=== PATIENT | female | born 1960 | race Caucasian/White ===

== ENCOUNTER 2024-08-22 08:16 | Day surgery (SDC) | payer MEDICARE, BC ==
[~2024-08-22] VITALS: Ht 167.6 cm; Wt 50.0 kg
[2024-08-22 08:41] VITALS: BP 131/65; PULSE 69; RESP 18; TEMP 97.5
[2024-08-22] MEDS ORDERED: simethicone 40mg/0.6ml oral drops 30ml ONE (10:09)
[2024-08-22] MEDS ORDERED: midazolam 1 mg/ML 2ml injection ONE (10:10)
[2024-08-22] MEDS ORDERED: fentaNYL/PF 50MCG/1 ML 2ML syringe ONE (10:10)
[2024-08-22] MEDS ORDERED: propofol inj 20 ML IV ONE (10:10)
[2024-08-22 10:42] VITALS: BP 103/55; PULSE 56; RESP 14; O2SAT 99
[2024-08-22 10:52] VITALS: BP 102/61; PULSE 62; RESP 15; O2SAT 100
[2024-08-22 11:02] VITALS: BP 111/58; PULSE 50; RESP 14; O2SAT 99
[2024-08-22 11:12] VITALS: BP 110/56; PULSE 65; RESP 16; O2SAT 98
== END 2024-08-22 11:20 | disposition home or self-care (01) ==
LOC: GI LAB 08:16
PROVIDERS: ATTEND Internal Medicine Gastroenterology
DX: K92.1 Melena (principal); K57.30 Diverticulosis of large intestine without perforation or abscess without bleeding; K52.89 Other specified noninfective gastroenteritis and colitis; K62.89 Other specified diseases of anus and rectum; K63.89 Other specified diseases of intestine; Z85.3 Personal history of malignant neoplasm of breast
CPT/HCPCS: 45380; J2250; J2704; J3010; J7030; Z7512